=== PATIENT | female | born 2000 | race Caucasian/White ===

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

== ENCOUNTER 2019-03-13 06:30 | Inpatient (IN) | payer BC, OTHER ==
[2019-03-13] MEDS ORDERED: NS / Oxytocin 40 units/1000ml 1,000 ML IV PRN (07:08)
[2019-03-13] MEDS ORDERED: Ibuprofen 800 MG TAB PO PRN (07:08)
[2019-03-13] MEDS ORDERED: Butorphanol Tartrate 1 MG/ML VIAL SLOW IVP PRN (07:08)
[2019-03-13] MEDS ORDERED: hydrALAZINE 20 MG/ML VIAL SLOW IVP PRN ×2 (07:08→13:00)
[2019-03-13] MEDS ORDERED: Ondansetron PF 4 MG/2 ML Vial IVP PRN ×3 (07:08→13:00)
[2019-03-13] MEDS ORDERED: Lidocaine 1% (PF) 30 ML VIAL SC PRN (07:08)
[2019-03-13] MEDS ORDERED: HYDROcodone/Acetaminophen 5/325 mg Tablet PO PRN ×4 (07:08→13:00)
[2019-03-13] MEDS ORDERED: Methylergonovine 0.2 MG/ML VIAL IM PRN ×2 (07:08→13:00)
[2019-03-13] MEDS ORDERED: Promethazine HCl 25 MG/ML VIAL IM PRN ×2 (07:08→09:36)
[2019-03-13] MEDS ORDERED: Misoprostol 200 MCG TAB PR PRN (07:08)
[2019-03-13] MEDS ORDERED: NS w/ Oxytocin 10 units 500 ML IV SCH (07:15)
[2019-03-13] MEDS ORDERED: Lactated Ringer's 1,000 ML IV SCH (07:15)
--- NOTE | 2019-03-13 07:22 | PDOC.LDHP ---
Labor and Delivery H&P Chief complaint: scheduled induction HPI: Patient arrived for elective IOL. Current gestational age (weeks): 39 (and 5 days) Due date: 03/15/19 Dating criteria: last menstrual period (verified with first trimester US) Grav: 2 Para: 1 OB History Details: in 2017. 8lbs Current complications: other (Suspected microcephaly - determined normal genetic variant by MFM.) Abnormal US findings: Yes (suspected mircorcephealy - resolved) Current medications: pre-gloria vitamins Previous surgical history: other (partial cystectomy) Allergies/Adverse Reactions: Allergies Allergy/AdvReac Type Severity Reaction Status Date / Time No Known Allergies Allergy Verified 03/13/19 07:32 Social history: none - Physical Exam Vital signs reviewed and normal: yes General: NAD Heart: RRR Lungs: nonlabored breathing Abdomen: gravid Extremeties: trace edema FHT: category 1 - Vaginal Exam cm dilated: 3 Effacement: 50% Station: -1 - OB Labs Blood type: O RH: positive Antibody Screen: negative HIV: negative RPR: negative HEPSAg: negative 1 hour GCT: negative GBS: negative Urine drug screen: negative Rubella: immune Additional Labs: [facility] - HSV IgG + - Assessment L&D Assessment: elective induction at term - Plan Plan: admit to L&D, other (pitocing for IOL)
[2019-03-13 07:41] VITALS: BMI 27.1
[2019-03-13 07:56] LABS: Hemoglobin 8.6 g/dL (12.0-16.0); Mean Corpuscular HGB CONC 33.8 g/dL (32.0-36.0); Mean Corpuscular Hemoglobin 22.9 pg (25.0-35.0); Mean Corpuscular Volume 67.6 fL (78.0-98.0); Mean Platelet Volume 9.4 fL (7.4-10.4); Platelet Count 287 thou/uL (130-400); Red Blood Cell (RBC) Count 3.77 mill/uL (4.00-5.20); White Blood Cell (WBC) Count 12.7 thou/uL (4.8-10.8)
--- NOTE | 2019-03-13 08:18 | PDOC.LDPN ---
Labor & Delivery Progress Note - Subjective Subjective: comfortable - Objective Vital signs reviewed and normal: yes General: breathing through contractions Uterine fundus: non tender Dilation: 5 Effacement: 75% Station: 0 FHT: category 1 AROM: clear fluid - Assessment (1) Encounter for elective induction of labor Code(s): Z34.90 - ENCNTR FOR SUPRVSN OF NORMAL , UNSP, UNSP TRIMESTER Current Visit: Yes Status: Acute Plan: pitocin for augmentation
[2019-03-13 08:34] LABS: HBSAg Index 0.13 S/CO (0-0.99); Hep B Surf Ag Non-Reactive S/CO (NonReactive); Syphilis Antibody Nonreactive (Nonreactive); Syphilis Antibody Index 0.03 S/CO (<1.00 Non-Reactive)
[2019-03-13] MEDS ORDERED: Fentanyl 4 mcg/Bup 0.1% Cadd 100 ML ONE (08:50)
[2019-03-13] MEDS ORDERED: Fentanyl 100 MCG/2 ML VIAL ONE (08:59)
[2019-03-13] MEDS ORDERED: diphenhydrAMINE 50 MG/ML VIAL IVP PRN (09:36)
[2019-03-13] MEDS ORDERED: Acetaminophen 325 MG TAB PO PRN (09:36)
[2019-03-13] MEDS ORDERED: Lactated Ringer's 500 ML IV PRN (09:36)
[2019-03-13] MEDS ORDERED: Naloxone HCl 0.4 mg/ml Vial IVP PRN ×2 (09:36)
[2019-03-13] MEDS ORDERED: ePHEDrine/0.9% NaCl/PF SYRINGE 50 mg/10 ml SLOW IVP PRN (09:36)
[2019-03-13] MEDS ORDERED: diphenhydrAMINE 50 MG/ML VIAL ONE (09:44)
[2019-03-13] MEDS ORDERED: Communication Order-Pharmacy FS PRN (09:45)
[2019-03-13] MEDS ORDERED: Fentanyl 4 mcg/Bupivacaine 0.1% Cassette 100 ML EPIDURAL SCH (09:45)
[2019-03-13] MEDS ORDERED: diphenhydrAMINE 50 MG/ML VIAL IVP SCH (10:15)
--- NOTE | 2019-03-13 12:41 | PDOC.OPDEL ---
OB Operative/Delivery Note Delivery Dr/Surgeon: MONSTER Vicente Pre-Delivery Diagnosis: elective induction Procedure/Post Delivery Dx: spontaneous vaginal delivery Weeks gestation: 39 Anesthesia: epidural - Findings A Sex: female Weight: 6 lb 3 oz - 1 min: 8 - 5 min: 9 - Additional Findings/Plan Placenta delivered: spontaneous Repaired Obstetrical Laceration: none Estimated blood loss: 100mL Post delivery plan: routine recovery
[2019-03-13] MEDS ORDERED: Misoprostol 200 MCG TAB VAG PRN (13:00)
[2019-03-13] MEDS ORDERED: Bisacodyl 10 MG SUPP PR PRN (13:00)
[2019-03-13] MEDS ORDERED: Milk Of Magnesia 30 ML UDCUP PO PRN (13:00)
[2019-03-13] MEDS ORDERED: Benzocaine-Menthol 82.5 ML CAN TOP PRN (13:00)
[2019-03-13] MEDS ORDERED: NS / Oxytocin 40 units/1000ml 1,000 ML IV SCH (13:00)
[2019-03-13] MEDS ORDERED: Adacel (T-DAP) 0.5 ML SYRINGE IM ONE (13:00)
[2019-03-13] MEDS: Ibuprofen 800 MG TAB PO SCH (16:45)
[2019-03-13] MEDS: Ferrous Sulfate 325 MG TAB PO SCH (18:26)
[2019-03-14] MEDS: Docusate Calcium (SURFAK) 240 MG CAP PO SCH ×2 (00:07→09:32)
[2019-03-14] MEDS: Ibuprofen 800 MG TAB PO SCH ×3 (00:07→14:35)
[2019-03-14] MEDS: Ferrous Sulfate 325 MG TAB PO SCH (09:31)
[2019-03-14 10:02] VITALS: BP 124/66; TEMP 97.9
== END 2019-03-14 18:05 | disposition home or self-care (01) | DRG 807 ==
LOC: L&D 06:48 → 3SW 14:55
PROVIDERS: ADMIT Obstetrics & Gynecology; ATTEND Obstetrics & Gynecology
PROC: 10E0XZZ Delivery of Products of Conception, External Approach (ICD-10-PCS; principal; 2019-03-13)
PROC: 3E033VJ Introduction of Other Hormone into Peripheral Vein, Percutaneous Approach (ICD-10-PCS; 2019-03-13)
DX: O98.52 Other viral diseases complicating childbirth (principal); Z37.0 Single live birth; B00.9 Herpesviral infection, unspecified; Z3A.39 39 weeks gestation of pregnancy
CPT/HCPCS: 36415; 85027; 86780; 86850; 86900; 86901; 87340; 90715; J0500; J1200; J2590; J3010